=== PATIENT | male | born 1960 | race Caucasian/White ===

== ENCOUNTER → 2024-02-05 13:00 | Outpatient (REF) | payer SELFPAY | LOC: HWRAD 13:00 | PROVIDERS: ATTENDING PHYSICIAN Internal Medicine Cardiovascular Disease; FAMILY PHYSICIAN Internal Medicine | DX: E78.5 Hyperlipidemia, unspecified (principal) | CPT/HCPCS: 75571 ==

== ENCOUNTER → 2024-04-24 18:55 | Outpatient (REF) | payer BC, SELFPAY | LOC: MRI 3T 18:55 | PROVIDERS: ATTENDING PHYSICIAN Specialist; FAMILY PHYSICIAN Internal Medicine | DX: R36.1 Hematospermia (principal) | CPT/HCPCS: 72197 ==

== ENCOUNTER → 2025-01-10 07:50 | Outpatient (REF) | payer BC, SELFPAY | LOC: MRI 07:50 | PROVIDERS: ATTENDING PHYSICIAN Otolaryngology; FAMILY PHYSICIAN Internal Medicine | DX: H91.22 Sudden idiopathic hearing loss, left ear (principal) | CPT/HCPCS: 70553; A9575 ==